=== PATIENT | male | born 1955 | race Caucasian/White ===

== ENCOUNTER 2024-12-20 12:20 | Outpatient (CLI) | payer MEDICARE, BC ==
--- NOTE | 2024-12-20 13:28 | RADIOLOGY REPORT ---
Bilateral knee radiograph CLINICAL INDICATION: Pain. TECHNIQUE: 3 radiographic views of the bilateral knees were obtained. FINDINGS: .There is no evidence of acute fracture or dislocation. Advanced tricompartmental joint spa ce narrowing bilaterally The alignment is anatomical.No erosive changes are seen.No radiopaque foreig n body is identified.There is no evidence for periosteal reaction.No soft tissue masses or calcificat ions identified. IMPRESSION: No acute abnormalities identified. Advanced tricompartmental joint space narrowing bilaterally
== END 2024-12-20 23:59 | disposition home or self-care (01) ==
LOC: RAD 12:20
PROVIDERS: ATTEND Family Medicine
DX: M17.0 Bilateral primary osteoarthritis of knee (principal)
CPT/HCPCS: 73565